=== PATIENT | female | born 1980 | race African-American/Black ===

== ENCOUNTER 2016-09-01 09:31 | Emergency (ER) | payer BC ==
--- NOTE | 2016-09-01 10:05 | ER Document Report ---
ED Medical Screen (RME) - General Chief Complaint: Abdominal Pain Stated Complaint: POSSIBLE BLOOD IN STOOL Time Seen by Provider: 09/01/16 09:58 Mode of Arrival: Ambulatory Information source: Patient TRAVEL OUTSIDE OF THE [place] IN LAST 30 DAYS: No - HPI Patient complains to provider of: rectal bleeding Onset: This morning - pt states she has had 3 episodes of bright red blood per rectum starting earlier this am. Denies pain at present. No hematuria. - Related Data Allergies/Adverse Reactions: No Known Allergies Allergy (Unverified 09/01/16 09:35) Past Medical History - Social History Chew tobacco use (# tins/day): No Frequency of alcohol use: None Drug Abuse: None Renal/ Medical History: Denies: Hx Peritoneal Dialysis Physical Exam - Vital signs Vitals: Temp Pulse Resp BP Pulse Ox 98.2 F 100 18 136/75 H 98 09/01/16 09:35 09/01/16 09:35 09/01/16 09:35 09/01/16 09:35 09/01/16 09:35 Course - Vital Signs Vital signs: Temp Pulse Resp BP Pulse Ox 98.2 F 100 18 136/75 H 98 09/01/16 09:35 09/01/16 09:35 09/01/16 09:35 09/01/16 09:35 09/01/16 09:35
[2016-09-01 10:25] LABS: ABSOLUTE EOSINOPHILS # (AUTO) 0.1 10^3/uL (0.0-0.6); ABSOLUTE LYMPHOCYTES (AUTO) 1.2 10^3/uL (0.5-4.7); ABSOLUTE MONOCYTES (AUTO) 0.5 10^3/uL (0.1-1.4); ABSOLUTE NEUT (AUTO) 4.7 10^3/uL (1.7-8.2); BASOPHILS % (AUTO) 0.5 % (0-2); EOSINOPHILS % (AUTO) 1.1 % (0-6); HEMATOCRIT 42.5 % (36.0-47.0); HEMOGLOBIN 14.2 g/dL (12.0-15.5); HGB HCT DIFFERENCE 0.1; MEAN CORPUSCULAR HGB CONC 33.3 g/dL (32.0-36.0); MEAN CORPUSCULAR VOLUME 99 fl (80-97); MONOCYTES % (AUTO) 7.2 % (3-13); RED BLOOD COUNT 4.29 10^6/uL (3.72-5.28); RED CELL DISTRIBUTION WIDTH 13.1 % (11.5-14.0); SEGMENTED NEUTROPHILS % (AUTO) 73.2 % (42-78); WHITE BLOOD COUNT 6.5 10^3/uL (4.0-10.5)
--- NOTE | 2016-09-01 10:36 | ER Document Report ---
ED General - General Chief Complaint: Abdominal Pain Stated Complaint: POSSIBLE BLOOD IN STOOL Time Seen by Provider: 09/01/16 09:58 Mode of Arrival: Ambulatory Information source: Patient Notes: This is a 36-year-old female with no medical problems who presents to the emergeny room with complaints of bright red blood in the stool 3 since this morning. Patient states she had lower abdominal cramping at 3 AM and had a bloody stool. She states she has had lower abdominal cramping since that time. She states she is currently on her menstrual cycle. So she was not sure if the cramping in the menstrual cycle were related to the GI tract. She denies any fever, chills, recent weight loss, nausea, vomiting. History: She does have a family history for colon cancer ( her aunt and her grandmother) Has had a colonoscopy 10 years ago. TRAVEL OUTSIDE OF THE [place] IN LAST 30 DAYS: No - HPI Onset: Just prior to arrival Onset/Duration: Sudden Quality of pain: Cramping Severity: None Pain Level: Denies Associated symptoms: denies: Fever, Shortness of breath Exacerbated by: Denies Relieved by: Denies Similar symptoms previously: No Recently seen / treated by doctor: No - Related Data Allergies/Adverse Reactions: No Known Allergies Allergy (Unverified 09/01/16 09:35) Past Medical History - General Information source: Patient - Social History Smoking Status: Never Smoker Cigarette use (# per day): No Chew tobacco use (# tins/day): No Frequency of alcohol use: None Drug Abuse: None Lives with: Family Family History: Reviewed & Not Pertinent Patient has suicidal ideation: No Patient has homicidal ideation: No - Medical History Medical History: Negative Renal/ Medical History: Denies: Hx Peritoneal Dialysis Surgical Hx: Other - Return Review of Systems - Review of Systems Constitutional: No symptoms reported EENT: No symptoms reported Cardiovascular: No symptoms reported Respiratory: No symptoms reported Gastrointestinal: See HPI Genitourinary: No symptoms reported Female Genitourinary: See HPI Musculoskeletal: No symptoms reported Skin: No symptoms reported Hematologic/Lymphatic: No symptoms reported Neurological/Psychological: No symptoms reported Physical Exam - Vital signs Vitals: Temp Pulse Resp BP Pulse Ox 98.2 F 100 18 136/75 H 98 09/01/16 09:35 09/01/16 09:35 09/01/16 09:35 09/01/16 09:35 09/01/16 09:35 Notes: Physical exam: GENERAL: 6-year-old female, alert and oriented 3, no acute distress HEAD: Atraumatic, normocephalic. EYES: Pupils equal round and reactive to light, extraocular movements intact, sclera anicteric, conjunctiva are normal. ENT: TMs normal, nares patent, oropharynx clear without exudates. Moist mucous membranes. NECK: Normal range of motion, supple without lymphadenopathy or JVD. LUNGS: Breath sounds clear to auscultation bilaterally and equal. No wheezes rales or rhonchi. HEART: Regular rate and rhythm without murmurs, rubs or gallops. ABDOMEN: Soft, normoactive bowel sounds. No tenderness to palpation. No guarding, no rebound. No masses appreciated. EXTREMITIES: Normal range of motion, no pitting or edema. No clubbing or cyanosis. RECTAL: External skin tag, no rectal masses, there is bright red blood on rectal exam. NEUROLOGICAL: Cranial nerves II through XII grossly intact. Normal speech, normal gait. PSYCH: Normal mood, normal affect. SKIN: Warm, Dry, normal turgor, no rashes or lesions noted. Course - Re-evaluation Re-evalutation: 09/01/16 14:35 Note: I discussed the case with the patient's doctor Dr. Bridgette Younger. She is hemodynamically stable and her blood counts have been stable. She has had no further bleeding while in the ER. I do believe she has had some rectal bleeding And I am going to refer her to GI. We do not have GI technology methodology consultant today so my choices to transfer her to seek outpatient care. Given that she looks so good, her blood pressure is good, her counts are good and she has not had any further bleeding, I think outpatient management is appropriate at this time. Dr. Younger his advised me that the patient follow-up with either Dr. Garcia or Dr. Palmer. The patient is currently on her menstrual cycle and that may have something to do with her lower abdominal cramping. In any event, her abdominal exam is very soft and there is no evidence of peritonitis. The CT of the abdomen shows no inflammation of the bowel. - Vital Signs Vital signs: Temp Pulse Resp BP Pulse Ox 98.4 F 66 18 102/64 100 09/01/16 14:48 09/01/16 14:48 09/01/16 14:48 09/01/16 14:48 09/01/16 14:48 - Laboratory Result Diagrams: 09/01/16 10:00 09/01/16 10:00 Laboratory results interpreted by me: 09/01/16 09/01/16 09/01/16 10:00 10:00 10:00 MCV 99 H Total Bilirubin 1.6 H Urine Blood MODERATE H - Diagnostic Test Radiology reviewed: Image reviewed, Reports reviewed - Abdomen shows no acute intra-abdominal process. There is an ovarian cyst Discharge - Discharge Clinical Impression: Rectal bleeding Condition: Stable Disposition: HOME, SELF-CARE Additional Instructions: I have left the number for to GI doctors affiliated with the hospital: Follow- up with 1 of them. I would call the office on Saturday and tell them you are in the emergency room for rectal bleeding in the doctor wanted to seen in the next week.\ Oh, when she to follow-up with Dr. Watkins The emergency room for worsening pain or worsening bleeding Referrals: MOHAN YOUNGER MD [Primary Care Provider] - Follow up in 3-5 days THADDEUS PALMER MD [ACTIVE STAFF] - Follow up as needed (This is the number of a GI doctor ) CEE GARCIA MD [ACTIVE STAFF] - Follow up as needed (Is the number for a GI doctor)
[2016-09-01 10:46] LABS: ALANINE AMINOTRANSFERASE 26 U/L (9-52); ALBUMIN 4.8 g/dL (3.5-5.0); ALKALINE PHOSPHATASE 60 U/L (38-126); ANION GAP 11 (5-19); ASPARTATE AMINO TRANSFERASE 17 U/L (14-36); BILIRUBIN,DIRECT 0.2 mg/dL (0.0-0.4); BILIRUBIN,TOTAL 1.6 mg/dL (0.2-1.3); BLOOD UREA NITROGEN 12 mg/dL (7-20); CALCIUM 9.8 mg/dL (8.4-10.2); CARBON DIOXIDE 22 mmol/L (22-30); CHLORIDE 107 mmol/L (98-107); CREATININE RESULT 0.77 mg/dL (0.52-1.25); GLUCOSE 90 mg/dL (75-110); POTASSIUM 4.4 mmol/L (3.6-5.0); SODIUM 140.4 mmol/L (137-145); TOTAL PROTEIN 7.9 g/dL (6.3-8.2)
[2016-09-01 11:00] LABS: PROTHROMBIN TIME 13.8 SEC (11.4-15.4)
[2016-09-01 11:01] LABS: AMORPHOUS SEDIMENT,URINE TRACE /HPF; APPEARANCE,URINE TURBID; BILIRUBIN,URINE NEGATIVE (NEGATIVE); GLUCOSE, URINE NEGATIVE (NEGATIVE); KETONES,URINE NEGATIVE (NEGATIVE); LEUKOCYTE ESTERASE,URINE NEGATIVE (NEGATIVE); NITRITE,URINE NEGATIVE (NEGATIVE); PROTEIN,URINE NEGATIVE (NEGATIVE); UROBILINOGEN,URINE NEGATIVE mg/dL (<2.0)
--- NOTE | 2016-09-01 12:43 | RADIOLOGY REPORT (SQ) ---
EXAM DESCRIPTION: CT ABD/PELVIS WITH IV ONLY COMPLETED DATE/TIME: 09/01/2016 12:07 pm REASON FOR STUDY: abd pain COMPARISON: None. TECHNIQUE: CT scan of the abdomen and pelvis performed using helical scanning technique with dynamic intravenous contrast injection. No oral contrast. Images reviewed with lung, soft tissue, and bone windows. Reconstructed coronal and sagittal MPR images reviewed. Delayed images for evaluation of the urinary system also acquired. All images stored on PACS. All CT scanners at this facility use dose modulation, iterative reconstruction, and/or weight based d osing when appropriate to reduce radiation dose to as low as reasonably achievable (ALARA). [facility]: Dose Right [facility]: CareDose [facility]: Dose Right [facility]: Teradose 4D [facility]: [employer] CONTRAST TYPE AND DOSE: contrast/concentration: Isovue 370.00 mg/ml; Total Contrast Delivered: 81.0 ml; Total Saline Delivered: 68.1 ml RENAL FUNCTION: None required. The patient is less than 50 years old. RADIATION DOSE: Up-to-date CT equipment and radiation dose reduction techniques were employed. CTDIv ol: 6.0 - 7.8 mGy. DLP: 707 mGy-cm.. LIMITATIONS: None. FINDINGS: LOWER CHEST: No significant findings. No nodules or infiltrates. LIVER: Normal size. No masses. No dilated ducts. SPLEEN: Normal size. No focal lesions. PANCREAS: No masses. No significant calcifications. No adjacent inflammation or peripancreatic fluid collections. Pancreatic duct not dilated. GALLBLADDER: No identified stones by CT criteria. No inflammatory changes to suggest cholecystitis. ADRENAL GLANDS: No significant masses or asymmetry. RIGHT KIDNEY AND URETER: No solid masses. No significant calcification. No hydronephrosis or hydroure ter. LEFT KIDNEY AND URETER: No solid masses. No significant calcification. No hydronephrosis or hydrouret er. AORTA AND VESSELS: No aneurysm. No dissection. Renal arteries, SMA, celiac without stenosis. RETROPERITONEUM: No retroperitoneal adenopathy, hemorrhage or masses. BOWEL AND PERITONEAL CAVITY: No masses or inflammatory changes. No free fluid or peritoneal masses. APPENDIX: Normal. PELVIS: 3.8 cm right ovarian region simple appearing cyst. No suspicious pelvic mass. Bladder decom pressed. No pelvic free fluid. ABDOMINAL WALL: No masses. No hernias. BONES: No significant or acute findings. OTHER: No other significant finding. IMPRESSION: 1. Right dianna pelvic cyst looks simple. Presumably adnexal origin. In a patient of th is age, doubtful clinical significance. If the patient's symptoms are referable to the pelvis, [facility] er, ultrasound might be warranted. 2. Otherwise unremarkable study. Normal appendix. TECHNICAL DOCUMENTATION: JOB ID: [id number] Quality ID # [id number]: Final reports with documentation of one or more dose reduction techniques (e.g., Au tomated exposure control, adjustment of the mA and/or kV according to patient size, use of iterative reconstruction technique) 2010 [employer]- All Rights Reserved
[2016-09-01 14:49] VITALS: BP 102/64
== END 2016-09-01 14:48 | disposition home or self-care (01) ==
LOC: ER 09:31
DX: K62.5 Hemorrhage of anus and rectum (principal); N83.201 Unspecified ovarian cyst, right side; R10.30 Lower abdominal pain, unspecified; K64.4 Residual hemorrhoidal skin tags; Z80.0 Family history of malignant neoplasm of digestive organs
CPT/HCPCS: 36415; 74177; 80053; 81001; 84702; 85025; 85610; 99284